=== PATIENT | male | born 1965 | race African-American/Black ===

== ENCOUNTER → 2019-01-25 | Day surgery (SDC) | payer BC ==
[~2019-01-25] MED LIST: AMLO10TA8 PO; CARV12.511 PO; IV RINGERS,LACTATED 1000ML 1,000 ML IV SCH; LIDOCAINE 2% PF 5 ML VIAL. ONE; LOSA1TAB22 PO; PANT20TA2 PO; PROPOFOL 20 ML IV ONE
--- NOTE | 2019-01-25 13:24 | PDOC1 ---
History and Physical Date of Admission Date of Admission DATE: 01/25/19 TIME: 13:19 Source Source: Chart review, Patient History of Present Illness History of Present Illness Recently in [facility] for atypical CP. Remote h/o heartburn. No prior EGD. Past Medical History Cardiovascular: HTN Past Surgical History Past Surgical History: Hernia Repair Family History Family History: Hypertension Social History Smoke: No ALCOHOL: occassional Drugs: None Current Medications Current Medications Current Medications Ringer's Solution 1,000 ml @ 50 mls/hr Q20H IV ; Start 01/25/19 at 07:00; Stop 01/25/19 at 18:59 Active Scripts Active Reported Carvedilol (Carvedilol) 12.5 Mg Tablet 12.5 Mg PO BIDWMEALS Amlodipine Besylate 10 Mg Tablet 10 Mg PO DAILY Losartan-Hctz 100-25 Mg Tab (Losartan/Hydrochlorothiazide) 1 Each Tablet 1 Tab PO DAILY Allergies Allergies: Coded Allergies: No Known Drug Allergies (Unverified , 01/25/19) ROS Review of System Otherwise negative. Physical Exam General: Oriented X3, Cooperative, No acute distress Lungs: Clear to auscultation Heart: S1S2, RRR, no gallops, no murmurs Abdomen: Normal bowel sounds, Soft, No tenderness, No hepatosplenomegaly, No masses Rectal Exam: not examined Extremities: No clubbing, No edema Skin: No significant lesion Neuro: Normal gait, Normal speech, Strength at 5/5 X4 ext, Normal tone, Sensation intact, Cranial nerves 3-12 NL, Reflexes 2+ Psych/Mental Status: Mental status NL Vitals Vitals See nursing record. VTE Prophylaxis Ordered VTE Prophylaxis Devices: No VTE Pharmacological Prophylaxi: No Assessment/Plan Assessment/Plan IMP: NCCP REC: EGDAI MINER MD Jan 25, 2019 13:24
--- NOTE | 2019-01-25 14:10 | PDOC4 ---
PROCEDURE Procedure EGD/biopsies Indication: NCCP/history of heartburn Meds: per anesthesia Findings: E--Grade A esophagitis at 35cm. No Crump's. G--Non-specific erythema pre-pyloric, biopsies antrum. D--Normal to second portion. Josue. well. IMP: Reflux esophagitis, mild. Non-specific prepyloric erythema, biopsied. REC: Resume meds, diet as before. Await histology. F/u with me in 2 weeks. DAI CROWDER MD Jan 25, 2019 14:10
[2019-01-25 14:23] VITALS: BP 158/92
--- NOTE | 2019-01-26 17:06 | PATHOLOGY ---
[facility] Accession Number: [id number] . 01 Material submitted: . stomach - ANTRUM BIOPSY . 01 Clinical history: . Atypical chest pain . 02 Diagnosis: Gastric biopsies, antrum: - Active chronic gastritis, moderate, with Helicobacter organisms identified. (JPM:bebe; 01/26/2019) QMS/01/26/2019 . 02 Comment: Sections of the gastric antral biopsy show congestion and moderate active chronic inflammation. A properly controlled immunoperoxidase stain for Helicobacter reveals numerous Helicobacter organisms. There is no evidence of malignancy. (JPM:bebe; 01/26/2019) . . Special stain performed: Immunperoxidase stain for Helicobacter . 02 Electronically signed: . Faheem Day MD, Pathologist NPI- [id number] . 01 Gross description: . Received in formalin labeled "Conner, Wilman, antrum BX," are 2 segments of lynch soft tissue measuring 1.1 x 0.2 x 0.1 cm in aggregate dimensions and ranging from 0.5 to 0.6 cm in maximum dimension. The specimen is submitted entirely in cassette A1. (TSD; 01/25/2019) TOB/TOB . 02 Pathologist provided ICD-10: K29.50, B96.81 . 02 CPT . 301947, R92950 Specimen Comment: A courtesy copy of this report has been sent to Specimen Comment: [phone], . Specimen Comment: Report sent to / DR ARELLANO Performed at: 01 [facility] [address], [place], [place] [id number] MD Jacinto Laguna MD Phone: [phone] Performed at: 02 [facility] [address], [place] [id number] MD Faheem Day MD Phone: [phone]
== END ==
LOC: ENDOS 12:51
PROVIDERS: ATTEND Internal Medicine Gastroenterology
DX: K21.0 Gastro-esophageal reflux disease with esophagitis (principal); I10 Essential (primary) hypertension; Z72.89 Other problems related to lifestyle
CPT/HCPCS: 43239; 88305; 88342; J2001; J2704